=== PATIENT | female | born 1995 | race Caucasian/White ===

== ENCOUNTER 2017-03-19 10:13 | Emergency (ER) | payer OTHER ==
[2017-03-19 11:36] VITALS: BP 116/61
--- NOTE | 2017-03-19 11:56 | UC ---
Ear Complaint HPI - HPI Summary HPI Summary: 21 year old male presents with complains of right ear pain, sinus congestion and post nasal drip. - History of Current Complaint Chief Complaint: UCRespiratory Stated Complaint: EAR PAIN Time Seen by Provider: 03/19/17 11:51 Hx Obtained From: Patient Hx Last Menstrual Period: 03/13/17 Onset/Duration: Sudden Onset Severity Initially: Moderate Severity Currently: Moderate - Allergies/Home Medications Allergies/Adverse Reactions: Allergies Allergy/AdvReac Type Severity Reaction Status Date / Time No Known Allergies Allergy Verified 03/19/17 11:33 PMH/Surg Hx/FS Hx/Imm Hx Previously Healthy: Yes - Surgical History Surgical History: None - Social History Alcohol Use: Weekly Substance Use Type: None Smoking Status (MU): Never Smoked Tobacco Review of Systems Constitutional: Negative Skin: Negative Eyes: Negative ENT: Sore Throat, Ear Ache, Nasal Discharge, Sinus Congestion, Sinus Pain/ Tenderness Respiratory: Negative Cardiovascular: Negative Gastrointestinal: Negative Genitourinary: Negative Motor: Negative Neurovascular: Negative Musculoskeletal: Negative Neurological: Negative Psychological: Negative All Other Systems Reviewed And Are Negative: Yes Physical Exam Triage Information Reviewed: Yes Vital Signs: Initial Vital Signs Temp 36.6 C 03/19/17 11:33 Pulse 79 03/19/17 11:33 Resp 16 03/19/17 11:33 BP 116/61 03/19/17 11:33 Pulse Ox 100 03/19/17 11:33 Vital Signs Reviewed: Yes Eye Exam: Normal ENT: Positive: Pharyngeal erythema, Nasal congestion, Nasal drainage, TM bulging , TM red Dental Exam: Normal Neck exam: Normal Neck: Positive: 1 Respiratory Exam: Normal Cardiovascular Exam: Normal Abdominal Exam: Normal Musculoskeletal Exam: Normal Neurological Exam: Normal Psychological Exam: Normal Skin Exam: Normal Ear Complaint Course/Dx - Differential Dx/Diagnosis Provider Diagnoses: aom. sinusitis. post nasal drip Discharge - Discharge Plan Condition: Stable Disposition: HOME Prescriptions: Amoxicillin/Clavulanate TAB* [Augmentin TAB 875*] 875 mg PO BID #20 tab LoraTADine TAB(NF) [Claritin 10 MG TAB(NF)] 10 mg PO DAILY #30 tab Methylprednisolone [Medrol Dosepak 4 MG*] 4 mg PO .SEE THANIA INSTRUCTION #21 tab guaiFENesin/CODIEN 100MG-10MG* [Robitussin AC 100Mg-10Mg*] 5 ml PO Q8H PRN #120 ml MDD 15 ml PRN Reason: Cough Patient Education Materials: Otitis Media (ED), Sinusitis (ED) Forms: *Work Release Referrals: No Primary Care Phys,NOPCP [Primary Care Provider] -
== END 2017-03-19 12:02 | disposition home or self-care (01) ==
LOC: UCEAST 10:13
DX: H66.91 Otitis media, unspecified, right ear (principal); J32.9 Chronic sinusitis, unspecified; R09.82 Postnasal drip
CPT/HCPCS: 99212; G0463

== ENCOUNTER 2019-02-09 20:50 | Emergency (ER) | payer BC ==
--- OUTSIDE RECORDS SUMMARY | 2019-02-09 21:08 | XMS REPORT | Continuity of Care Document ---
:1995 External Reference #:[id number] Author Name JOSH Diego Address [address] [place] [address] Care Team Providers Name Role Phone Eleanor Torres M.D. Care Team Information [employer] Unavailable Eleanor Torres M.D. 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, [employer] Tobacco Use Start: Unknown Never Smoked Cigarettes Smoking Status Reviewed: 12/24/18 Never Smoked Cigarettes ETOH Use Social Alcohol Exercise Type/Frequency Exercises regularly Seat Belt/Car Seat Always uses seat belt Allergies, Adverse Reactions, Alerts Description No Known Drug Allergies Medications Active Medications SIG Qnty Indications Ordering Provider Date Ketoconazole apply to wet 240ml R21 JOSH Diego 12/24/2018 2% Shampoo skin, leave on for 5 min and rinse, may use every 3 d History Medications No Active Medications Unknown 12/24/2018 - 12/24/2018 Vital Signs Date Vital Result Comment 12/24/2018 9:55am BP Systolic 110 mmHg BP Diastolic 68 mmHg Heart Rate 64 /min Body Temperature 97.7 F Respiratory Rate 16 /min Height 67 inches 5'7" Weight 151.00 lb BMI (Body Mass Index) 23.6 kg/m2 Procedures Date Code Description Status 03/26/2018 [id number] Mammogram Completed Plan of Treatment 12/24/2018 - Renee York, [id number] Rash and other nonspecific skin eruptionNew Medication:Ketoconazole 2 % - apply to wet skin, leave on for 5 min and rinse, may use every 3 dComments:Calll if sx worsen/persist > 2 weeks
[2019-02-09] MEDS ORDERED: Lactated Ringers 1000 ML Bag* 1,000 ML IV SCH (23:45)
[2019-02-09] MEDS ORDERED: Lactated Ringers 1000 ML Bag* 1,000 ML IV ONE (23:45)
[2019-02-09] MEDS ORDERED: Famotidine IV* 10 MG/ML 2 ML (20 mg) IV SLOW PU ONE (23:50)
[2019-02-09] MEDS ORDERED: Ketorolac INJ* 30 MG/ML 1 ML VIAL IV PUSH ONE (23:50)
[2019-02-09] MEDS ORDERED: Magnesium Sulfate 2 GM IV* 2 GM/50 ML BAG IVPB ONE (23:51)
[2019-02-09] MEDS ORDERED: Metoclopramide IV* 5 MG/ML 2 ML VIAL IV SLOW PU ONE (23:51)
--- NOTE | 2019-02-09 23:52 | ED ---
HPI Febrile Illness - HPI Summary HPI Summary: This pt is a 23 Y/O F presenting to [facility] accompanied by her partner with a CC of a fever of 103F since this morning which is rated a 5/10 in severity. She states that she has been experiencing a headache as well. She states that she has rhinorrhea, chills, and a cough. She stated that she had neck pain that radiates down to the middle of her back. She denies any nausea, vomiting, abdominal pain, and nasal congestion. She states that she has had no aggravating or alleviating factors. 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 She has no pertinent PMHx. - History of Current Complaint Chief Complaint: EDFever Time Seen by Provider: 02/09/19 23:15 Hx Obtained From: Patient Hx Last Menstrual Period: 03/13/17 Onset/Duration: Started Days Ago - 1 Timing: Constant Temperature: 103 F Initial Severity: Moderate Current Severity: Moderate Pain Intensity: 5 Pain Scale Used: 0-10 Numeric Aggravating Factors: Nothing Alleviating Factors: Nothing Associated Signs and Symptoms: Negative - nausea, vomiting, abdominal pain, and nasal congestion, Chills, Cough, Drainage, Headache, Myalgia, Stiff Neck - Allergy/Home Medications Allergies/Adverse Reactions: Allergies Allergy/AdvReac Type Severity Reaction Status Date / Time No Known Allergies Allergy Verified 03/19/17 11:33 Home Medications: Home Medications NK [No Home Medications Reported] 02/09/19 [History Confirmed 02/09/19] PMH/Surg Hx/FS Hx/Imm Hx Previously Healthy: Yes Endocrine/Hematology History: Denies: Hx Diabetes Cardiovascular History: Denies: Hx Hypertension Respiratory History: Denies: Hx Asthma Sensory History: Reports: Hx Contacts or Glasses Opthamlomology History: Reports: Hx Contacts or Glasses - Surgical History Surgical History: Yes Surgery Procedure, Year, and Place: wisdom teeth removed 2010 - Immunization History Immunizations Up to Date: Yes Infectious Disease History: No Infectious Disease History: Denies: History Other Infectious Disease, Traveled Outside the [place] in Last 30 Days - Family History Known Family History: Negative: Cardiac Disease, Hypertension, Diabetes - Social History Occupation: Employed Full-time Lives: With Family Alcohol Use: Occasionally Hx Substance Use: No Substance Use Type: Reports: None Hx Tobacco Use: No Smoking Status (MU): Never Smoked Tobacco Household Exposure: No Review of Systems Positive: Fever - 103 F, Chills ENT: Other - rhinorrhea, neck pain that radiates to her back Negative: Nasal Discharge Positive: Cough Negative: Abdominal Pain, Vomiting, Nausea Positive: Headache All Other Systems Reviewed And Are Negative: Yes Physical Exam - Summary Physical Exam Summary: Constitutional: Well-developed, Well-nourished, Alert. (-) Distressed Skin: Warm, Dry HENT: Normocephalic; Atraumatic Eyes: Conjunctiva normal Neck: Musculoskeletal ROM normal neck. (-) JVD, (-) Stridor, (-) Nuchal rigidity Cardio: Rhythm regular, Tachycardic with a dry cough heart sounds normal; Intact distal pulses; Radial pulses are 2+ and symmetric. (-) Murmur Pulmonary/Chest wall: Effort normal. (-) Respiratory distress, (-) Wheezes, (-) Rales Abd: Soft, (-) tenderness, (-) Distension, (-) Guarding, (-) Rebound Musculoskeletal: (-) Edema, Mild right sided CVA tenderness Lymph: (-) Cervical adenopathy Neuro: Alert, Oriented x3 Psych: Mood and affect Normal Triage Information Reviewed: Yes Vital Signs On Initial Exam: Initial Vitals Temp Pulse Resp BP Pulse Ox 100.1 F 112 20 129/78 98 02/09/19 20:54 02/09/19 20:54 02/09/19 20:54 02/09/19 20:54 02/09/19 20:54 Vital Signs Reviewed: Yes Diagnostics - Vital Signs Vital Signs Temp Pulse Resp BP Pulse Ox 02/09/19 20:54 100.1 F 112 20 129/78 98 - Laboratory Lab Statement: Any lab studies that have been ordered have been reviewed, and results considered in the medical decision making process. Course/Dx - Course Course Of Treatment: This pt is a 23 Y/O F presenting to [facility] accompanied by her partner with a CC of a fever of 103F since this morning which is rated a 5/ 10 in severity. She states that she has been experiencing a headache as well. She states that she has rhinorrhea, chills, and a cough. Her PE found the following: Tachycardic with a dry cough and Mild right sided CVA tenderness. She will be discharged home since her HR dropped with a Dx of a voluntary choice. - Diagnoses Provider Diagnoses: Viral syndrome Discharge ED - Sign-Out/Discharge Documenting (check all that apply): Patient Departure - discharge Patient Received Moderate/Deep Sedation with Procedure: No - Discharge Plan Condition: Stable Disposition: HOME Patient Education Materials: Viral Syndrome (ED) Referrals: [facility] [Outside] - Billing Disposition and Condition Condition: STABLE Disposition: Home - Attestation Statements Document Initiated by Scribe: Yes Documenting Scribe: Prasanna Combs Provider For Whom Benny is Documenting (Include Credential): Baljinder Zuniga MD Scribe Attestation: Prasanna Villanueva, scribed for Baljinder Zuniga MD on 02/10/19 at 0757. Scribe Documentation Reviewed: Yes Provider Attestation: The documentation as recorded by the Prasanna barajas accurately reflects the service I personally performed and the decisions made by Baljinder balderas MD Status of Scribe Document: Viewed
[2019-02-10 02:58] VITALS: BP 112/66
== END 2019-02-10 02:59 | disposition home or self-care (01) ==
LOC: ED 20:50
DX: B34.9 Viral infection, unspecified (principal); R50.9 Fever, unspecified; R51 Headache
CPT/HCPCS: 96361; 96365; 96375; 99284; J1885; J2765; J3475